=== PATIENT | male | born 1955 | race Caucasian/White ===

== ENCOUNTER 2019-05-10 10:52 | Emergency (ER) | payer OTHER, SELFPAY ==
[2019-05-10 11:03] VITALS: BP 132/76; PULSE 91; RESP 18; TEMP 36.9; O2SAT 94
--- NOTE | 2019-05-10 11:30 | PC.NURSE ---
pt is on the phone at the nursing station talking to her family
[2019-05-10 12:37] LABS: Add Manual Diff / Slide Review NO; Basophils Absolute Auto 0 /uL (0-100); Basophils Percent Auto 0.2 % (0-2); Eosinophils Absolute Auto 0 /uL (0-450); Eosinophils Percent Auto 0.5 % (2-4); Hemoglobin 14.7 g/dL (13.5-17.5); Lymphocytes Absolute Auto 800 /uL (1100-4500); Lymphocytes Percent Auto 8.3 % (25-40); Mean Corpuscular HGB Conc 35.1 % (30-36); Mean Corpuscular Hemoglobin 32.6 PG (26-34); Monocytes Absolute Auto 700 /uL (0-900); Monocytes Percent Auto 7.2 % (3-14); Neutrophils Absolute Auto 7700 /uL (1500-7000); Neutrophils Percent Auto 83.8 % (50-75); Platelet Count 250 X10^3/uL (150-400); Red Blood Cell Count 4.52 X10^6/uL (4.5-5.9); Red Cell Distribution Width 13.3 % (11.6-14.8); White Blood Cell Count 9.2 X10^3/uL (4.5-11.0)
[2019-05-10 12:47] LABS: Alanine Aminotransferase 21 IU/L (<50); Albumin 4.1 g/dL (3.5-5.0); Albumin Globulin Ratio 1.4 (1.0-2.8); Alkaline Phosphatase 65 U/L (38-126); Aspartate Aminotransferase 33 IU/L (17-59); Bilirubin Total 0.8 mg/dL (0.2-1.3); Blood Urea Nitrogen 18 mg/dL (9-20); Calcium 9.5 mg/dL (8.4-10.2); Carbon Dioxide 27 mmol/L (22-32); Chloride 101 mmol/L (98-107); Estimated Glomerular Filt Rate > 60.0 mL/min (>60); Glucose 175 mg/dL (80-110); HEMOLYSIS 17 (0-50); Lipase 62 U/L (23-300); Potassium 4.4 mmol/L (3.4-5.1); Sodium 137 mmol/L (137-145); Total Protein 7.1 g/dL (6.3-8.2)
--- NOTE | 2019-05-10 12:50 | ED.NAVMDI ---
HPI - Nausea/Vomiting/Diarrhea General Chief complaint: Nausea/Vomiting/Diarrhea Stated complaint: 2 days,diarrhea/vomiting Time Seen by Provider: 05/10/19 11:40 Source: patient Mode of arrival: Ambulatory Limitations: no limitations History of Present Illness HPI Narrative: Patient comes emergency department complaining of nausea, vomiting, diarrhea, and generally not feeling well. He states he began to feel unwell 2 nights ago and at that time, just noticed that he felt cold and could not get warm. Patient states he did not sleep well that night and felt tired yesterday. He continued to be cold throughout the day and into the evening despite trying to warm up by taking hot showers. Patient states the situation was complicated by the fact that when he flew here from his home in [place], his initial Flight did not have heat and he got very chilled. He states that now, his hotel room heater has not been working and they have not been able to fix it. This has exacerbated the feeling of not being able to get warm. Patient states that overnight, he began to feel nauseated and the feeling worsened until he began to vomit. At the same time, patient developed diarrhea and states he had alternating bouts of vomiting and diarrhea throughout the night. He states both of these have stopped, any thinks that this is likely because he is ?empty?. Patient states he has not been able to keep fluids down. He denies any abdominal pain. He states he sometimes feels warm and tingly before he is going to vomit. Patient denies any other complaints at this time. No measured fevers. No dysuria. No blood in his stools or urine. Related Data Previous Rx's Medication Instructions Recorded ondansetron 4 mg PO Q6H PRN #14 tab 05/10/19 Allergies Allergy/AdvReac Type Severity Reaction Status Date / Time Penicillins Allergy Verified 05/10/19 11:07 tetracycline Allergy Verified 05/10/19 12:02 erythromycin base AdvReac Verified 05/10/19 12:02 neomycin AdvReac Verified 05/10/19 12:02 eggs Allergy Uncoded 05/10/19 11:07 Review of Systems Constitutional Constitutional: Denies chills, Denies fatigue, Denies fever(s), Denies frequent falls, Denies lethargy and Denies weakness Eyes Eyes: Denies change in vision, Denies eye discharge, Denies irritation and Denies loss of vision ENT Ears, Nose, Mouth, and Throat: Denies change in voice, Denies dizziness, Denies neck pain, Denies sore throat and Denies throat swelling Cardiovascular Cardiovascular: Denies chest pain, Denies irregular heart rhythm, Denies lightheadedness, Denies palpitations, Denies dyspnea, Denies dyspnea on exertion and Denies orthopnea Respiratory Respiratory: Denies cough, Denies dyspnea, Denies dyspnea on exertion and Denies wheezing Gastrointestinal Gastrointestinal: Denies abdominal pain, Denies change in bowel habits, Denies diarrhea, Denies nausea and Denies vomiting Genitourinary Genitourinary: Denies hematuria, Denies flank pain, Denies urinary incontinence and Denies urinary urgency Musculoskeletal Musculoskeletal: Denies back pain, Denies muscle weakness, Denies neck pain, Denies numbness and Denies tingling Integumentary/Breasts Skin/Breast: Denies pruritus, Denies erythema, Denies rash and Denies wounds Neurologic Neurologic: Denies behavioral changes, Denies confusion, Denies dizziness, Denies frequent falls, Denies loss of vision, Denies numbness, Denies tingling and Denies weakness Psychiatric Psychiatric: Denies anxiety, Denies behavioral changes, Denies confusion, Denies depression, Denies homicidal ideation and Denies suicidal ideation Endocrine Endocrine: Denies fatigue, Denies flushing and Denies palpitations Hematologic/Lymphatic Hematologic/Lymphatic: Denies easy bruising Allergic/Immunologic Allergic/Immunologic: Denies urticaria, Denies throat swelling and Denies wheezing Patient History Social History Smoking Status: Never smoker alcohol intake frequency: other Substance Use Type: does not use Exam Initial Vital Signs Initial Vital Signs: Vital Signs Temperature 98.5 F 05/10/19 11:03 Pulse Rate 91 H 05/10/19 11:03 Respiratory Rate 18 05/10/19 11:03 Blood Pressure 132/76 05/10/19 11:03 Pulse Oximetry 94 05/10/19 11:03 Const General: cooperative and well developed Nutritional Appearance: well nourished Orientation: alert, awake, oriented x3 and not confused HENMT Head: normocephalic and atraumatic Ears: external ears normal Nose: external nose normal and No nasal discharge Face and sinus: face symmetric and No dry mucous membranes Mouth: oral mucosae normal and moist mucous membranes Teeth and gingiva: dentition normal Eyes General: appearance normal, both eyes and all related structures Eyelids: eyelids normal Conjunctivae: conjunctivae normal Sclera: sclerae normal Pupils: PERRL EOM: EOM intact bilaterally Neck Neck: normal visual inspection, trachea midline, No lymphadenopathy, No midline deformity and No JVD Lymphatic: No lymphedema Chest Chest: normal inspection of the chest Resp Effort & Inspection: normal respiratory effort, able to speak in complete sentences, no respiratory distress and no use of accessory muscles Auscultation: clear to auscultation bilaterally, no rales, no rhonchi and no wheezes Cardio Rate: regular rate Rhythm: regular rhythm Heart Sounds: no click, no gallops, no murmurs and no rubs Pulses: normal peripheral pulses GI Inspection: non-distended Palpation: soft, no hepatosplenomegaly, No guarding, No pulsatile mass and No tender Back/Spine/Pelvis Back: No CVA tenderness Cervical Spine: cervical ROM normal and No pain with cervical ROM Thoracic/Lumbar Spine: thoracic and lumbar spine normal to inspection Skin General: no rashes or lesions noted, No jaundice and No petechiae Neuro General: alert, oriented x3, gait normal and no focal motor deficits Speech: speech normal Extrem General: full ROM, no clubbing, cyanosis or edema, no pedal edema and no calf tenderness Psych Appearance: well kempt Mental Status: mental status grossly normal Attitude: cooperative Thought Content: normal and suicidality Judgment: judgment good Course Course Course Narrative: Patient was treated symptomatically with IV fluids and Zofran. His laboratory workup was unremarkable. The patient's abdominal exam was benign, and I did not feel that imaging was indicated. The patient's white blood cell count was normal. We have discussed that this will most likely be a self-limited illness and is most likely viral. We have discussed the usual indications for return. Orders Ordered: Discontinued Medications Sodium Chloride (Normal Saline 0.9%) 1,000 mls @ 1,000 mls/hr IV BOLUS ONE Stop: 05/10/19 13:47 Last Infusion: 05/10/19 14:54 Dose: 0 mls/hr Documented by: Admin: 05/10/19 13:10 Dose: 1,000 mls/hr Documented by: CHILANGO Ondansetron HCl (Zofran) 4 mg IV NOW ONE Stop: 05/10/19 12:28 Last Admin: 05/10/19 13:00 Dose: Not Given Documented by: CHILANGO Ondansetron HCl (Zofran) 4 mg IV NOW ONE Stop: 05/10/19 12:49 Last Admin: 05/10/19 13:11 Dose: 4 mg Documented by: CHILANGO Vital Signs Vital signs: Vital Signs - 8 hr 05/10/19 11:03 Temperature 98.5 F Pulse Rate 91 H Respiratory Rate 18 Blood Pressure 132/76 Pulse Oximetry 94 MDM - Nausea/Vomiting/Diarrhea Medical Records Attestation: I reviewed the patient's medical records. Lab Data Attestation: I reviewed the patient's lab results. Result diagrams: 05/10/19 11:55 05/10/19 11:55 Labs: Lab Results 05/10/19 05/10/19 Range/Units 11:55 11:55 WBC 9.2 (4.5-11.0) X10^3/uL RBC 4.52 (4.5-5.9) X10^6/uL Hgb 14.7 (13.5-17.5) g/dL Hct 42.0 (41-53) % MCV 93.0 (80-100) fL MCH 32.6 (26-34) PG MCHC 35.1 (30-36) % RDW 13.3 (11.6-14.8) % Plt Count 250 (150-400) X10^3/uL Neut % (Auto) 83.8 H (50-75) % Lymph % (Auto) 8.3 L (25-40) % [place] % (Auto) 7.2 (3-14) % Eos % (Auto) 0.5 L (2-4) % Baso % (Auto) 0.2 (0-2) % Neut # (Auto) 7700 H (6240-5143) /uL Lymph # (Auto) 800 L (7225-2828) /uL [place] # (Auto) 700 (0-900) /uL Eos # (Auto) 0 (0-450) /uL Baso # (Auto) 0 (0-100) /uL Sodium 137 (137-145) mmol/L Potassium 4.4 (3.4-5.1) mmol/L Chloride 101 (98-107) mmol/L Carbon Dioxide 27 (22-32) mmol/L BUN 18 (9-20) mg/dL Creatinine 0.90 (0.66-1.25) mg/dL Estimated GFR > 60.0 (>60) mL/min BUN/Creatinine Ratio 20.0 (6-22) Glucose 175 H (80-110) mg/dL Calcium 9.5 (8.4-10.2) mg/dL Total Bilirubin 0.8 (0.2-1.3) mg/dL AST 33 (17-59) IU/L ALT 21 (<50) IU/L Alkaline Phosphatase 65 (38-126) U/L Total Protein 7.1 (6.3-8.2) g/dL Albumin 4.1 (3.5-5.0) g/dL Globulin 3.0 (1.7-4.1) g/dL Albumin/Globulin Ratio 1.4 (1.0-2.8) Lipase 62 (23-300) U/L Discharge Plan Departure Patient Disposition: Home Clinical Impression: Gastroenteritis Discharge Date/Time: 05/10/19 15:20 Instructions: DI for Food Poisoning, DI for Viral Gastroenteritis -- Adult Activity Restrictions/Additional Instructions: Your symptoms may be secondary to the food you ate the other night, but are more likely to be secondary to a viral syndrome, based on the timeline of symptoms. Either way, however, the symptoms will blow over on their own. Please take the nausea medicine, as needed, and get plenty of fluids. If he develops fevers or severe abdominal pain, or if you're not feeling better by the end of the weekend, please follow up with your primary care physician. Prescriptions: New ondansetron 4 mg tablet,disintegrating 4 mg PO Q6H PRN (Reason: nausea and vomiting) Qty: 14 RF: 0
[2019-05-10 12:57] VITALS: BP 121/66; PULSE 81; RESP 17; O2SAT 94
[2019-05-10] MEDS: SODIUM CHLORIDE 0.9% 1,000 ML 1000 ML IV (13:10)
[2019-05-10] MEDS: ONDANSETRON 4 MG/2 ML INJ IV (13:11)
[2019-05-10 13:57] VITALS: BP 121/73; PULSE 86; RESP 17; O2SAT 93
[2019-05-10 15:20] VITALS: BP 121/73; PULSE 78; RESP 18; O2SAT 99
== END 2019-05-10 15:20 | disposition home or self-care (01) ==
PROVIDERS: Emergency Provider Emergency Medicine
DX: K52.9 Noninfective gastroenteritis and colitis, unspecified (principal)
CPT/HCPCS: 80053; 83690; 85025; 96361; 96374; 99283; 99284; J2405